=== PATIENT | female | born 1960 | race Two or more races ===

== ENCOUNTER 2020-02-21 14:00 | Outpatient (CLI) | payer MEDICAID ==
[~2020-02-21] VITALS: Ht 172.7 cm; Wt 108.9 kg
--- NOTE | 2020-02-21 18:44 | Consultation ---
DATE OF CONSULTATION: 02/21/2020 CONSULTING PHYSICIAN: Saqib Garcia MD CHIEF COMPLAINT: Abdominal pain. HISTORY OF PRESENT ILLNESS: This is a 59-year-old female with history of sleeve gastrectomy, who had apparently cholecystectomy done in November of 2018, but based on followup imaging showed that the patient still has gallbladder. She is still having some abdominal symptoms, so she was referred to us for EGD and EUS. PAST MEDICAL HISTORY: hypertension, depression, gallstones, hypothyroidism, morbid obesity. PAST SURGICAL HISTORY: Sleeve gastrectomy, cholecystectomy. MEDICATIONS: Please see medication reconciliation list. FAMILY HISTORY: Noncontributory. SOCIAL HISTORY: Patient denies any tobacco, alcohol, or drug abuse. ALLERGIES: To Claritin. PHYSICAL EXAMINATION: VITAL SIGNS: Temperature 98, blood pressure 127/75, pulse is 70, respirations 20. HEENT: Normocephalic, atraumatic. Sclerae anicteric. NECK: Supple. No evidence of obvious lymphadenopathy. CARDIOVASCULAR: Regular rate and rhythm. Plus S1, S2. LUNGS: Decreased breath sounds bilaterally based on supine exam. ABDOMEN: Soft, nontender. No rebound. No guarding. No peritoneal sign. EXTREMITIES: No cyanosis. No clubbing. No edema. ASSESSMENT AND PLAN: This is a 59-year-old female with history of cholecystectomy, sleeve gastrectomy, questionable stones seen on multiple imaging on the gallbladder, so patient needs an EGD and EUS. Plan to do when the authorization is obtained. Saqib Garcia M.D. DR: KAROL JOB#: [id number] CC:
[2020-02-22 10:14] VITALS: BP 127/75
[2020-02-22] MEDS ORDERED: BUPROPION HCL75 MG PO (10:14)
[2020-02-22] MEDS ORDERED: OMEPRAZOLE40 M1 ORAL (10:14)
[2020-02-22] MEDS ORDERED: BENAZEPRIL HCL10 MG ORAL (10:14)
[2020-02-22] MEDS ORDERED: SYNTHROID25 MCG ORAL (10:14)
== END 2020-02-21 16:00 | disposition home or self-care (01) ==
LOC: PAN 14:00
DX: R10.9 Unspecified abdominal pain (principal); I10 Essential (primary) hypertension; F32.9 Major depressive disorder, single episode, unspecified; E03.9 Hypothyroidism, unspecified; Z90.49 Acquired absence of other specified parts of digestive tract; Z98.84 Bariatric surgery status
CPT/HCPCS: G0463

== ENCOUNTER 2020-04-24 12:21 | Outpatient (CLI) | payer MEDICAID ==
[~2020-04-24 12:21] MED LIST: BENAZEPRIL HCL10 MG ORAL; BUPROPION HCL75 MG PO; OMEPRAZOLE40 M1 ORAL; SYNTHROID25 MCG ORAL
--- NOTE | 2020-04-24 15:12 | General Progress Note ---
Assessment/Plan Assessment/Plan: SUMMARY OF FINDINGS: 1. Post sleeve gastrectomy. 2. Gastritis, status post biopsy. 3. A 3 cm anechoic lesion, seems to be in the liver parenchyma, suggestive of possibly a liver cyst. 4. Common bile duct of 5.3 mm without any stones results reviewed consider ERCP if become symptomatic Subjective ROS Limited/Unobtainable: Yes Allergies: Coded Allergies: LORATADINE (Verified Adverse Reaction, Intermediate, 04/10/20) CAUSES IMBALANCE Objective General Appearance: alert EENT: normal ENT inspection Neck: supple Cardiovascular: normal rate Respiratory/Chest: decreased breath sounds Abdomen: normal bowel sounds, non tender, soft Extremities: non-tender Saqib Garcia MD Apr 24, 2020 15:12
== END 2020-04-24 14:21 | disposition home or self-care (01) ==
LOC: PAN 12:21
DX: K29.70 Gastritis, unspecified, without bleeding (principal); Z90.49 Acquired absence of other specified parts of digestive tract; K76.9 Liver disease, unspecified; Z88.8 Allergy status to other drugs, medicaments and biological substances
CPT/HCPCS: 99212